=== PATIENT | male | born 1945 | race Caucasian/White ===

== ENCOUNTER → 2021-11-29 08:44 | Outpatient (CLI) | payer MEDICARE, OTHER, SELFPAY ==
--- NOTE | 2021-11-29 | DI.ECHO.S_ITS ---
[facility]---------+ [facility] +---------+ : : [address] : [place] [address] : : : : [id number] : : : : Phone: [phone]---------+ Echocardiogram Report + + :Name: KEYSHAWN NORTH Study Date: 11/29/2021 Height: 67.5 in: :[facility] ReadingLocation: Weight: 170 lb : : Gender: Male BSA: 1.9 m2 : :: 1945 Age: 75 yrs BP: 140/86 mmHg: :Reason For Study: Hx of TIA : :Ordering Physician: : :YASIR Performed By: Phoenix Diaz : :Referring: RM [place] : + + Interpretation Summary The left ventricle is normal in size. The ejection fraction is estimated to be 65-70%. Borderline right ventricular enlargement. The right ventricular systolic function is normal. The atrial septum is aneurysmal. No obvious PFO seen however will recommend bubble study. The aortic valve is moderately calcified. There is mild to moderately reduced leaflet mobility. The peak aortic velocity is 1.64 m/sec. There is no hemodynamically significant valvular aortic stenosis. Mild atherosclerotic plaque(s) in the aortic arch. The IVC is of normal diameter and collapses greater than 50% with a sniff. This suggests a low right atrial pressure of 3 mm Hg. Procedure: A two-dimensional transthoracic echocardiogram with color flow and Doppler was performed. There is no prior echocardiogram noted for this patient. The study quality was technically difficult. The patient was in normal sinus rhythm during the exam. Left Ventricle: The left ventricle is normal in size. Proximal septal thickening is noted. There is no echo evidence for significant left ventricular outflow tract obstruction. There is no thrombus. The ejection fraction is estimated to be 65-70%. Septal motion is consistent with conduction abnormality. Diastolic parameters suggest a relaxation abnormality of the left ventricle, consistent with probable normal filling pressures. Right Ventricle: Borderline right ventricular enlargement. The right ventricular systolic function is normal. Atria: The left atrial size is normal. Borderline right atrial enlargement. The atrial septum is aneurysmal. No obvious PFO seen however will recommend bubble study. Mitral Valve: There is mild mitral annular calcification. There is trace mitral regurgitation. Aortic Valve: The aortic valve is trileaflet. There is mild to moderately reduced leaflet mobility. The aortic valve is moderately calcified. The peak aortic velocity is 1.64 m/sec. There is no hemodynamically significant valvular aortic stenosis. There is no aortic regurgitation. Tricuspid Valve: The tricuspid valve is normal. Pulmonary artery pressures cannot be estimated because of the lack of a measurable TR jet velocity but the IVC suggests a CVP of around 3 mmHg. There is trace tricuspid regurgitation. Pulmonic Valve: The pulmonic valve is not well seen, but is grossly normal. There is trace pulmonic regurgitation. Great Vessels: The aortic root is mildly dilated. The ascending aorta is normal in size. The aortic arch is normal in size. Mild atherosclerotic plaque (s) in the aortic arch. The IVC is of normal diameter and collapses greater than 50% with a sniff. This suggests a low right atrial pressure of 3 mm Hg. Pericardium/ Pleura There is no pericardial effusion. There is an anterior echo-free space consistent with a fat pad. There is no pleural effusion. MMode/2D Measurements & Calculations LVIDd: 4.1 cm LVOT diam: 2.3 cm LVIDs: 2.5 cm Ao root diam: 3.8 cm FS: 39.0 % asc Aorta Diam: 3.3 cm IVSd: 0.90 cm Ao Arch Diam (Prox Trans): 2.4 cm LVPWd: 0.80 cm LV lewis. diameter/BSA (cm/m^2): 2.2 LV sys. diameter/BSA (cm/m^2): 1.3 LA A2 area: 11.9 cm2 RA long axis: 5.7 cm LA A4 area: 9.4 cm2 LA length (vol): 4.1 cm LA vol: 23.2 ml LA vol index: 12.2 ml/m2 TAPSE_phl: 2.5 cm Doppler Measurements & Calculations Ao V2 max: 164.0 cm/sec LVOT Max Jose Eduardo: 107.0 cm/sec Ao V2 mean: 132.0 cm/sec LV V1 max P.6 mmHg Ao max P.0 mmHg LV V1 VTI: 22.5 cm Ao mean P.0 mmHg TOM(I,D): 2.4 cm2 Ao V2 VTI: 38.9 cm TOM(V,D): 2.7 cm2 sev ratio: 0.58 TOM indexed to BSA (cm^2/m^2): 1.3 MV E max jose eduardo: 69.8 cm/sec PA V2 max: 79.8 cm/sec MV A max jose eduardo: 75.2 cm/sec PA V2 mean: 58.8 cm/sec MV E/A: 0.93 PA mean P.0 mmHg Med Peak E' Jose Eduardo: 6.3 cm/sec PA pr(Accel): 30.0 mmHg E/E' med: 11.1 Lat Peak E' Jose Eduardo: 6.1 cm/sec E/E' lat: 11.5 E/e' average: 11.3 MV dec time: 0.21 sec SV(LVOT): 93.5 ml AV VR_phl: 0.65 TOM(VTI)/BSA_phl: 1.3 MV P1/2t-pr_phl: 62.0 msec Reading Physician:[id number] PM
== END ==
PROVIDERS: PCP Family Medicine; Referring Provider Family Medicine; Visit Provider Family Medicine
DX: I77.810 Thoracic aortic ectasia (principal); I70.0 Atherosclerosis of aorta; Z86.73 Personal history of transient ischemic attack (TIA), and cerebral infarction without residual deficits
CPT/HCPCS: 93306